=== PATIENT | male | born 1960 | race Caucasian/White ===

== ENCOUNTER 2023-11-26 12:29 | Emergency (ER) | payer MEDICAID, OTHER ==
[~2023-11-26] VITALS: Ht 170.2 cm; Wt 77.0 kg
[2023-11-26 12:32] VITALS: O2SAT 98
[2023-11-26 13:04] LABS: HEMATOCRIT 31.9 % (42.0-52.0); HEMOGLOBIN 10.5 g/dL (14.0-18.0); MEAN CORPUSCULAR HEMOGLOBIN 29.6 pg (28.0-32.0); MEAN CORPUSCULAR HGB CONC 33.1 g/dL (31.0-37.0); MEAN CORPUSCULAR VOLUME 89.6 fL (80.0-94.0); PLATELET 292 x1000/uL (130-400); RED BLOOD CELL COUNT 3.56 mill/uL (4.7-6.1); RED CELL DISTRIBUTION WIDTH 15.1 % (11.6-14.6); WHITE BLOOD COUNT 8.3 x1000/uL (4.5-11.0)
[2023-11-26 13:10] LABS: CARBON DIOXIDE 27 mEq/L (21-32); CHLORIDE 108 mEq/L (98-107); POTASSIUM 5.1 mEq/L (3.5-5.1); SODIUM 138 mEq/L (136-145)
[2023-11-26 13:11] LABS: CALCIUM 8.6 mg/dL (8.7-10.4)
[2023-11-26 13:15] LABS: CREATININE 1.9 mg/dL (0.6-1.3)
[2023-11-26 13:16] LABS: GLUCOSE 211 mg/dL (70-105); UREA NITROGEN BLOOD 44 mg/dL (9-23)
[2023-11-26 13:17] LABS: ALANINE AMINOTRANSFERASE 31 IU/L (10-49)
[2023-11-26 13:18] LABS: ALBUMIN 3.7 g/dL (3.2-4.8); ASPARTATE AMINOTRANSFERASE 27 IU/L (<34); BILIRUBIN TOTAL 0.6 mg/dL (0.1-1.0); PROTEIN TOTAL 6.7 g/dL (6.0-8.3); TROPONIN I HIGH SENSITIVITY 53 ng/L (3.0-53)
[2023-11-26 16:45] VITALS: BP 159/77; PULSE 75; RESP 15; TEMP 36.89184; O2SAT 94
== END 2023-11-26 16:52 | disposition home or self-care (01) ==
LOC: ER 12:29
DX: R60.0 Localized edema (principal); I11.0 Hypertensive heart disease with heart failure; I50.9 Heart failure, unspecified; R94.4 Abnormal results of kidney function studies
CPT/HCPCS: 80053; 83880; 85027; 84484; 36415; 93970; 93005; 99284; Z7610 ×2